=== PATIENT | female | born 1995 | race Caucasian/White ===

== ENCOUNTER 2019-01-03 19:56 | Emergency (ER) | payer BC ==
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
[2019-01-03] MEDS ORDERED: NS(*) 0.9% 1000 ML BAG 1,000 ML IV ONE (20:04)
[2019-01-03] MEDS ORDERED: ONDANSETRON 4 MG/2 ML VIAL IVP ONE (20:05)
[2019-01-03 20:41] LABS: PLATELET COUNT, AUTOMATED 320 K/uL (150-450)
[2019-01-03] MEDS ORDERED: ONDANSETRON 4 MG ODT TH SL ONE (20:55)
[2019-01-03 21:00] VITALS: BP 112/82
== END 2019-01-03 21:18 | disposition home or self-care (01) ==
LOC: ER 20:02
DX: R41.82 Altered mental status, unspecified (principal); R41.0 Disorientation, unspecified; F10.920 Alcohol use, unspecified with intoxication, uncomplicated; R11.10 Vomiting, unspecified; Y90.7 Blood alcohol level of 200-239 mg/100 ml
CPT/HCPCS: 80305; 80320; 81001; 81025; 82150; 83690; 85025; 96374; 99283; J2405; J7030; S0119; 82040; 82247; 82310; 82374; 82435; 82565; 82947; 84075; 84132; 84155; 84295; 84450; 84460; 84520